=== PATIENT | female | born 1940 | race Caucasian/White ===

== ENCOUNTER 2019-03-11 21:53 | Inpatient (IN) | payer MEDICARE, BC ==
[2019-03-11 22:41] LABS: ABSOLUTE BASOPHILS # (AUTO) 0.1 10^3/uL (0.0-0.2); ABSOLUTE EOSINOPHILS # (AUTO) 0.1 10^3/uL (0.0-0.6); ABSOLUTE LYMPHOCYTES (AUTO) 1.6 10^3/uL (0.5-4.7); ABSOLUTE MONOCYTES (AUTO) 0.8 10^3/uL (0.1-1.4); ABSOLUTE NEUT (AUTO) 6.5 10^3/uL (1.7-8.2); BASOPHILS % (AUTO) 0.6 % (0-2); EOSINOPHILS % (AUTO) 1.2 % (0-6); HEMOGLOBIN 14.6 g/dL (12.0-15.5); LYMPHOCYTES % (AUTO) 17.9 % (13-45); MEAN CORPUSCULAR HEMOGLOBIN 33.8 pg (27.0-33.4); MEAN CORPUSCULAR HGB CONC 33.3 g/dL (32.0-36.0); MEAN CORPUSCULAR VOLUME 102 fl (80-97); MONOCYTES % (AUTO) 8.4 % (3-13); PLATELET COUNT 230 10^3/uL (150-450); RED BLOOD COUNT 4.32 10^6/uL (3.72-5.28); RED CELL DISTRIBUTION WIDTH 15.3 % (11.5-14.0); SEGMENTED NEUTROPHILS % (AUTO) 71.9 % (42-78); TOTAL CELLS COUNTED % (AUTO) 100 %; WHITE BLOOD COUNT 9.1 10^3/uL (4.0-10.5)
[2019-03-11 22:49] LABS: ALBUMIN 3.9 g/dL (3.5-5.0); ALKALINE PHOSPHATASE 78 U/L (38-126); ANION GAP 5 (5-19); ASPARTATE AMINO TRANSFERASE 29 U/L (14-36); BILIRUBIN,TOTAL 0.2 mg/dL (0.2-1.3); BLOOD UREA NITROGEN 17 mg/dL (7-20); CALCIUM 9.7 mg/dL (8.4-10.2); CARBON DIOXIDE 33 mmol/L (22-30); CHLORIDE 103 mmol/L (98-107); GLUCOSE 123 mg/dL (75-110); POTASSIUM 4.8 mmol/L (3.6-5.0); TOTAL PROTEIN 6.2 g/dL (6.3-8.2)
[2019-03-11 22:51] LABS: ALCOHOL < 10 mg/dL (NONE DETECTED)
[2019-03-11 23:00] LABS: APPEARANCE,URINE CLOUDY; BILIRUBIN,URINE NEGATIVE (NEGATIVE); COLOR,URINE YELLOW; GLUCOSE, URINE NEGATIVE (NEGATIVE); KETONES,URINE NEGATIVE (NEGATIVE); LEUKOCYTE ESTERASE,URINE LARGE (NEGATIVE); NITRITE,URINE POSITIVE (NEGATIVE); PROTEIN,URINE 100 mg/dL (NEGATIVE); URINE SPECIFIC GRAVITY 1.015; UROBILINOGEN,URINE NEGATIVE mg/dL (<2.0)
[2019-03-11 23:08] LABS: URINE AMPHETAMINES SCREEN NEGATIVE; URINE BENZODIAZEPINES SCREEN NEGATIVE; URINE COCAINE SCREEN NEGATIVE; URINE MARIJUANA (THC) SCREEN NEGATIVE; URINE METHADONE SCREEN NEGATIVE; URINE PHENCYCLIDINE SCREEN NEGATIVE
[2019-03-11 23:09] LABS: URINE BARBITURATES SCREEN UNCONFIRMED POSITIVE
[2019-03-11 23:42] LABS: ACETAMINOPHEN < 10 ug/mL (10-30); SALICYLATE < 1.0 mg/dL (2.0-20.0)
--- NOTE | 2019-03-12 00:07 | RADIOLOGY REPORT (SQ) ---
CT of the head: 03/11/2019 11:04 PM RECORDING STUDIO INTERN HISTORY: 78-year-old patient with altered mental status. COMPARISON: None available TECHNIQUE: Multiple axial contiguous images were obtained through the head without intravenous contrast administered. This exam was performed according to our departmental dose-optimization program, which includes automated exposure control, adjustment of the mA and/or KV according to the patient's size and/or use of iterative reconstruction technique. FINDINGS: The ventricles and cerebral sulci demonstrate mild prominence, consistent with cerebral atrophy. There are mild periventricular hypodensities, suggestive of periventricular white matter changes. The wang-white matter differentiation is within normal limits. Both orbits appear unremarkable. The mastoid air cells appear clear. The visualized paranasal sinuses appear clear. The calvarium is intact. No extra-axial fluid collection is seen. No midline shift or mass effect is apparent. There are no findings to suggest acute intracranial hemorrhage. IMPRESSION: 1. No acute intracranial hemorrhage is seen. 2. Mild cerebral atrophy and periventricular white matter changes are seen.
--- NOTE | 2019-03-12 00:08 | RADIOLOGY REPORT (SQ) ---
AP Portable chest: 03/11/2019 11:06 PM TRAVELING CLERK History: 78-year old patient with altered mental status. Comparison: None available Findings: The cardiomediastinal silhouette is normal in size. No pneumothorax is seen. No acute airspace opacities are seen. No discrete pleural effusion is apparent. There is questionable increased density at the aortopulmonic window. Impression: No acute airspace opacities are seen. There is some questionable increased density at the aortopulmonic window region.
[2019-03-12] MEDS ORDERED: CEFTRIAXONE 1 GM/D5W RTU 1 GM/50 ML RTUPB IV ONE (00:30)
--- NOTE | 2019-03-12 02:27 | ER Document Report ---
ED General - General Chief Complaint: Altered Mental Status Stated Complaint: POSSIBLE OVERDOSE Time Seen by Provider: 03/11/19 22:52 TRAVEL OUTSIDE OF THE [place] IN LAST 30 DAYS: No - HPI Notes: Patient is a 78-year-old female brought into the emergency department for evaluation. History is obtained from EMS and neighbor. Patient had a longtime history of alcohol dependence. She was arrested for DWI over a year ago, at that point she quit drinking. According to the neighbor she "had the shakes" af terwards, and received some medicines to help her with alcohol withdrawals. She states the patient would not admit that these were secondary to the alcohol, thought she was developing a tremor. At any rate, the patient still intermittently drinks, and recently was drinking heavily while her granddaughter and great grandson were staying with her. The patient and her granddaughter got into a fight, the granddaughter moved out, and at that point the patient stopped drinking. Evidently she developed shaking tremors shortly afterwards. She had a prescription for primidone and Ativan. Patient's neighbor states she was unable to contact her. She went down to the house and found her unresponsive on the floor, with an empty bottle of primidone and Ativan next to her. According to the neighbor, she had not expressed any suicidal ideations to her in the past, but certainly had reasons to be heavily depressed. She lost her , her beloved family pet as well. She is alienated from her son and daughter, who does not speak with her. She is currently fighting with her granddaughter. It is unclear at this time what the patient's intention was by taking these medications to excess. - Related Data Allergies/Adverse Reactions: No Known Allergies Allergy (Verified 03/11/19 22:33) Home Medications: Primidone. Lorazepam. simvastatin. metoprolol. Clopidogrel Past Medical History - General Information source: Friend - Social History Smoking Status: Current Every Day Smoker Chew tobacco use (# tins/day): No Frequency of alcohol use: Heavy Drug Abuse: None Family History: Other - Not obtained secondary to current mental status Patient has suicidal ideation: No Patient has homicidal ideation: No - Past Medical History Cardiac Medical History: Reports: Hx Hypercholesterolemia, Hx Hypertension Review of Systems - Review of Systems -: Yes ROS unobtainable due to patient's medical condition Physical Exam - Vital signs Vitals: Resp Pulse Ox 18 92 03/11/19 21:54 03/11/19 21:54 - Notes Notes: This is a 78-year-old female who appears her stated age, no acute distress. She is somnolent but awoke to verbal stimuli. Vital signs reviewed, please refer to chart. Head is normocephalic, atraumatic. Pupils equal round, reactive to light. Neck is supple without meningismus. Heart is regular rate and rhythm. Lungs are clear to auscultation bilaterally. Abdomen is soft, nontender, normoactive bowel sounds throughout. Extremities without cyanosis, clubbing. Posterior calves are nontender. Peripheral pulses are equal. Skin is warm and dry. Patient is drowsy, GCS 13. No gross facial asymmetry. Patient moves all 4 extremities spontaneously. Sensation appears to be intact. Course - Re-evaluation Re-evalutation: 03/12/19 02:29 Patient presents to the emergency department for evaluation. She was clearly under the influence of an overdose of primidone and Ativan. She was somnolent, but woke to verbal stimuli. She became more alert throughout the course of her stay, although she does remain somewhat confused. My suspicion is that this is still secondary to the medication. She did have a medical work-up here. Her laboratory investigations revealed a UTI. She is not hypotensive nor tachycardic. She does not have a leukocytosis. I did get an order 1 g of IV Rocephin, will start the patient on Keflex while here. At this point, I do believe patient is medically cleared. It is unclear at this time whether or not she was actively suicidal, or if this is a substance abuse issue. At any rate, I do believe psychosocial evaluation is appropriate. Given her lack of capacity at this time, as well as my concerns, IVC was placed. Patient is medically cleared, awaiting evaluation in the morning. - Vital Signs Vital signs: Temp Pulse Resp BP Pulse Ox 97.6 F 15 138/52 H 94 03/11/19 22:31 03/12/19 00:31 03/12/19 00:31 03/12/19 00:31 - Laboratory Result Diagrams: 03/11/19 21:50 03/11/19 21:50 Laboratory results interpreted by me: 03/11/19 03/11/19 03/11/19 21:50 21:50 21:50 MCV 102 H MCH 33.8 H RDW 15.3 H Carbon Dioxide 33 H Glucose 123 H Magnesium 2.6 H Total Protein 6.2 L Urine Protein Urine Blood Urine Nitrite Ur Leukocyte Esterase Salicylates < 1.0 L Acetaminophen < 10 L 03/11/19 22:14 MCV MCH RDW Carbon Dioxide Glucose Magnesium Total Protein Urine Protein 100 H Urine Blood SMALL H Urine Nitrite POSITIVE H Ur Leukocyte Esterase LARGE H Salicylates Acetaminophen - Diagnostic Test Radiology reviewed: Reports reviewed Radiology results interpreted by me: 03/12/19 02:[address] 03/11/19 22:53 IMPRESSION: 1. No acute intracranial hemorrhage is seen. 2. Mild cerebral atrophy and periventricular white matter changes are seen. - EKG Interpretation by Me Additional EKG results interpreted by me: 03/12/19 02:28 Initial EKG reveals a sinus mechanism with a rate of 87 bpm. Normal axis. Borderline prolonged QT interval at 491. No acute ST changes concerning for ischemia or infarction. Repeat EKG shows a sinus mechanism at 88 bpm, and QT interval is still borderline prolonged, but down to 480. Discharge - Discharge Clinical Impression: Overdose, Urinary tract infection Condition: Stable Disposition: OTHER Instructions: Cephalexin ([facility]), Urinary Tract Infection ([facility]) Prescriptions: Cephalexin Monohydrate [Keflex 500 mg Capsule] 500 mg PO QID #20 capsule
--- NOTE | 2019-03-12 06:34 | EKG REPORT ---
SEVERITY:- BORDERLINE ECG - SINUS RHYTHM BORDERLINE PROLONGED QT INTERVAL : Confirmed by: Luis E Lo MD 12-Mar-2019 06:33:54
--- NOTE | 2019-03-12 09:16 | EKG REPORT ---
SEVERITY:- NORMAL ECG - SINUS RHYTHM : Confirmed by: Parul Severino 12-Mar-2019 09:16:02
[2019-03-12] MEDS ORDERED: CEPHALEXIN 500 MG CAPSULE PO SCH (10:00)
--- NOTE | 2019-03-12 10:02 | ER Document Report ---
Doctor's Note Notes: 03/12/19 10:02 On review of the chart the Keflex had not been ordered as an tract so I did order the Keflex to treat the UTI. There was also no consultation for psychiatric services regarding the overdose so I have placed the consult and will speak with the psychiatric providers 03/12/19 10:22 I spoke with the psychiatric team about the patient and they are aware of the consult. I went to evaluate the patient. She does arouse to voice but is confused. She is able to give me the year but not the month. She is able to give me her birthday but not the president. She does not have recollection of whether she took too many of her medications at home. She does admit to hypertension but is otherwise a poor historian for providing other details of her medical history. On review of the records she is supposed to be on Plavix do not know if she is actually taking this medication, is supposed to be on metoprolol do not know if she has been taking this medication. Patient falls asleep in the middle of our conversations and is still very sleepy and drowsy. She does arouse to voice. 03/12/19 10:45 I spoke with poison control, both Ativan and primidone will have a long half- life duration. He will call me back after he discusses the primidone issue with toxicology as we are not sure that the patient overdosed. I spoke with Alex vasquez the hospitalist service physician registered nurse first assistant. He request that I speak with the etl architect initially to see if the patient may need the ICU, if he declines call him back and they will accept the patient for admission 03/12/19 10:[address] Zepeda, Fire Management Technician. case discussed will admit to ICU. discussed with poison control. Long half life may be several days to be out of system. Supportive care.
[2019-03-12] MEDS: CLOPIDOGREL BISULFATE 75 MG TABLET PO SCH (10:05)
[2019-03-12] MEDS: METOPROLOL SUCCINATE 50 MG TAB.SR.24H PO SCH (10:05)
[2019-03-12 11:25] LABS: ABSOLUTE BASOPHILS # (AUTO) 0.1 10^3/uL (0.0-0.2); ABSOLUTE EOSINOPHILS # (AUTO) 0.1 10^3/uL (0.0-0.6); ABSOLUTE LYMPHOCYTES (AUTO) 1.4 10^3/uL (0.5-4.7); ABSOLUTE MONOCYTES (AUTO) 0.8 10^3/uL (0.1-1.4); ABSOLUTE NEUT (AUTO) 3.7 10^3/uL (1.7-8.2); BASOPHILS % (AUTO) 0.9 % (0-2); EOSINOPHILS % (AUTO) 1.7 % (0-6); HEMATOCRIT 38.1 % (36.0-47.0); LYMPHOCYTES % (AUTO) 23.2 % (13-45); MEAN CORPUSCULAR HEMOGLOBIN 34.2 pg (27.0-33.4); MEAN CORPUSCULAR HGB CONC 34.2 g/dL (32.0-36.0); MEAN CORPUSCULAR VOLUME 100 fl (80-97); MONOCYTES % (AUTO) 13.3 % (3-13); PLATELET COUNT 195 10^3/uL (150-450); RED BLOOD COUNT 3.82 10^6/uL (3.72-5.28); SEGMENTED NEUTROPHILS % (AUTO) 60.9 % (42-78); TOTAL CELLS COUNTED % (AUTO) 100 %
[2019-03-12 11:47] LABS: BLOOD UREA NITROGEN 14 mg/dL (7-20); CALCIUM 9.5 mg/dL (8.4-10.2); CARBON DIOXIDE 35 mmol/L (22-30); GLUCOSE 95 mg/dL (75-110); POTASSIUM 3.9 mmol/L (3.6-5.0)
[2019-03-12 11:53] LABS: CHLORIDE 103 mmol/L (98-107)
[2019-03-12 11:54] LABS: ANION GAP 4 (5-19)
[2019-03-12] MEDS ORDERED: ACETAMINOPHEN 325 MG TABLET PO PRN (13:45)
[2019-03-12] MEDS ORDERED: DEXTROSE 40% GEL 15 GM TUBE PO PRN ×2 (13:45)
[2019-03-12] MEDS ORDERED: ONDANSETRON HCL INJ/PF 4 MG/2 ML SDV IV PRN (13:45)
[2019-03-12] MEDS ORDERED: GLUCAGON,HUMAN RECOMB 1 MG INJ SUBCUT PRN (13:45)
[2019-03-12] MEDS ORDERED: DEXTROSE 50%-WATER 25 GM/50 ML DISP.SYRIN IV PRN ×2 (13:45)
[2019-03-12] MEDS: THIAMINE HCL 100 MG, FOLIC ACID 1 MG in NORMAL SALINE 250 ML IV SCH (13:49)
[2019-03-12] MEDS ORDERED: INFLUENZA QUAD (6MOS+) 2019-20 VAC 0.5 ML SYR IM ONE (14:00)
[2019-03-12] MEDS ORDERED: LABETALOL HCL INJ 20 MG/4 ML DISP.SYRIN IV PRN (14:19)
[2019-03-12] MEDS ORDERED: LORAZEPAM INJ 2 MG/1 ML VIAL IV PRN (14:21)
--- NOTE | 2019-03-12 14:34 | CRITICAL CARE ADMISSION REPORT ---
HPI Date:: 03/12/19 - Critical Care Attending Time:: 14:24 Reason for ICU Reason:: drug overdose, alcohol abuse HPI: Pt is a 78 yo woman with a h/o alcohol abuse, CAD, HTN, hyperlipidemia, who was brought to the ED after being found unresponsive by a neighbor. Per report, there were empty bottles of ativan and primidone next to the pt. Pt has been lethargic but had periods of agiation in the ED and has required 4 point soft restraints. She was diagnosed with a UTI in the ED and has been started on ATBX. Upon my assessement of the pt in the ICU, she is lethargic, in restraints, but moves all extremities. - Diagnosis/Plan (1) Overdose Qualifiers: Encounter type: initial encounter Injury intent: undetermined intent Qualified Code(s): T50.904A - Poisoning by unspecified drugs, medicaments and biological substances, undetermined, initial encounter Is this a current diagnosis for this admission?: Yes (2) Urinary tract infection Qualifiers: Urinary tract infection type: acute cystitis Is this a current diagnosis for this admission?: Yes (3) Alcohol abuse Is this a current diagnosis for this admission?: Yes (4) Encephalopathy acute Is this a current diagnosis for this admission?: Yes Past Medical History Cardiac Medical History: Reports: Coronary Artery Disease, Hyperlipidema, Hypertension Social/Family History - Social History Smoking Status: Unknown if Ever Smoked Frequency of Alcohol Use: Heavy Hx Recreational Drug Use: - unknown Drugs: None Hx Prescription Drug Abuse: No - Medication/Allergies Home Medications: Cephalexin Monohydrate [Keflex 500 mg Capsule] 500 mg PO QID #20 capsule 03/12/19 Clopidogrel Bisulfate [Plavix 75 mg Tablet] 75 mg PO DAILY 03/12/19 Fluoxetine HCl [Prozac 20 mg Capsule] 20 mg PO DAILY 03/12/19 Lorazepam [Ativan 0.5 mg Tablet] 0.5 mg PO Q6HP PRN 03/12/19 Metoprolol Succinate [Toprol Xl 50 mg Tab.sr] 50 mg PO DAILY 03/12/19 Primidone [Mysoline 50 mg Tablet] 150 mg PO QHS 03/12/19 Simvastatin [Zocor 40 mg Tablet] 40 mg PO QHS 03/12/19 Venlafaxine HCl ER [Effexor Xr 75 mg Cap.sr] 75 mg PO DAILY 03/12/19 Allergies/Adverse Reactions: No Known Allergies Allergy (Verified 03/11/19 22:33) Review of Systems ROS unobtainable: Due to mental status Physical Exam Vital Signs: Temp Pulse Resp BP Pulse Ox 97.7 F 84 18 173/65 H 97 03/12/19 14:00 03/12/19 14:00 03/12/19 14:00 03/12/19 14:00 03/12/19 14:00 Intake & Output 03/11/19 03/12/19 03/13/19 06:59 06:59 06:59 Intake Total 50 Balance 50 Weight 64.8 kg 67.2 kg Weight/Height Weight 67.2 kg Height 5 ft 5 in General appearance: PRESENT: no acute distress, well-developed, well-nourished Head exam: PRESENT: atraumatic, normocephalic Respiratory exam: PRESENT: unlabored Cardiovascular exam: PRESENT: RRR GI/Abdominal exam: PRESENT: soft, other - non tender, non distended Extremities exam: PRESENT: other - no edemam Musculoskeletal exam: PRESENT: normal inspection Neurological exam: PRESENT: altered, other - moves all extremities Laboratory/Radiographs Laboratory Results: 03/12/19 11:10 03/12/19 11:10 03/11/19 03/11/19 03/11/19 21:50 21:50 21:50 WBC 9.1 RBC 4.32 Hgb 14.6 Hct 44.0 MCV 102 H MCH 33.8 H MCHC 33.3 RDW 15.3 H Plt Count 230 Seg Neutrophils % 71.9 Sodium 141.2 Cancelled Potassium 4.8 Cancelled Chloride 103 Cancelled Carbon Dioxide 33 H Cancelled Anion Gap 5 Cancelled BUN 17 Cancelled Creatinine 0.55 Cancelled Est GFR ( Amer) > 60 Cancelled Est GFR (Non-Af Amer) Cancelled Glucose 123 H Cancelled Calcium 9.7 Cancelled Magnesium 2.6 H Cancelled Total Bilirubin 0.2 Cancelled AST 29 Cancelled Alkaline Phosphatase 78 Cancelled Total Protein 6.2 L Cancelled Albumin 3.9 Cancelled Urine Color Urine Appearance Urine pH Ur Specific Cochran Urine Protein Urine Glucose (UA) Urine Ketones Urine Blood Urine Nitrite Ur Leukocyte Esterase Urine WBC (Auto) Urine RBC (Auto) 03/11/19 03/12/19 03/12/19 22:14 11:10 11:10 WBC 6.0 RBC 3.82 Hgb 13.0 Hct 38.1 MCV 100 H MCH 34.2 H MCHC 34.2 RDW 15.0 H Plt Count 195 Seg Neutrophils % 60.9 Sodium 141.6 Potassium 3.9 Chloride 103 Carbon Dioxide 35 H Anion Gap 4 L BUN 14 Creatinine 0.68 Est GFR ( Amer) > 60 Est GFR (Non-Af Amer) Glucose 95 Calcium 9.5 Magnesium 2.5 H Total Bilirubin AST Alkaline Phosphatase Total Protein Albumin Urine Color YELLOW Urine Appearance CLOUDY Urine pH 6.0 Ur Specific Cochran 1.015 Urine Protein 100 H Urine Glucose (UA) NEGATIVE Urine Ketones NEGATIVE Urine Blood SMALL H Urine Nitrite POSITIVE H Ur Leukocyte Esterase LARGE H Urine WBC (Auto) 145 Urine RBC (Auto) 9 03/11/19 21:50 Troponin I < 0.012 Impressions: Head CT 03/11/19 22:53 IMPRESSION: 1. No acute intracranial hemorrhage is seen. 2. Mild cerebral atrophy and periventricular white matter changes are seen. All labs, radiographs, diagnostic studies and EKGs were personally reviewed: Yes Critical Time Critical Time (minutes): 0 - level three initial inpatient exam -: The care of a critically ill patient is dynamic. This note represents a static moment in the admission process. Orders and treatments may be given simultaneously and urgently, and time is not veterans contact representative of the treatment process. This patient requires Critical Care secondary to life threatening organ or limb dysfunction. Without Critical Care services, the patient is at risk for increased mortality and morbidity. Provider Note Provider Note: Assessment: 78 yo woman with alcohol abuse, encephalopathy, drug overdose, UTI. Plan: 1. Respiratory: stable on room air 2. CV: HTN. Resume home Toprol XL. Prn labetalol 3. Psych: drug overdose with ativan and primodone. Unclear if this was intentional. Alcohol abuse/intoxication. encephalopathy. Monitor for signs and symptoms of withdrawal, CIWA. IV folic acid and thiamine. Psychiatry has been consulted. Pt has been involuntarily committed. 4. UTI. culture is positive for GNR. Will start cipro 5. Nutrition: NPO 6. Prophylaxis: lovenox
[2019-03-12] MEDS: CIPROFLOXACIN 400 MG/D5W RTU 400 MG/200 ML RTUPB IV SCH ×2 (15:20→22:25)
[2019-03-12] MEDS: FAMOTIDINE INJ/PF 20 MG/2 ML SDV IV SCH (22:25)
[2019-03-12] MEDS: SIMVASTATIN 40 MG TABLET PO SCH (22:26)
[2019-03-13 05:07] LABS: HEMATOCRIT 39.7 % (36.0-47.0); HEMOGLOBIN 13.4 g/dL (12.0-15.5); MEAN CORPUSCULAR HGB CONC 33.8 g/dL (32.0-36.0); MEAN CORPUSCULAR VOLUME 101 fl (80-97); PLATELET COUNT 210 10^3/uL (150-450); RED BLOOD COUNT 3.94 10^6/uL (3.72-5.28); RED CELL DISTRIBUTION WIDTH 14.8 % (11.5-14.0); WHITE BLOOD COUNT 7.1 10^3/uL (4.0-10.5)
[2019-03-13 05:33] LABS: ANION GAP 6 (5-19); CARBON DIOXIDE 31 mmol/L (22-30); CHLORIDE 104 mmol/L (98-107)
[2019-03-13 05:34] LABS: BLOOD UREA NITROGEN 11 mg/dL (7-20); CALCIUM 9.5 mg/dL (8.4-10.2); GLUCOSE 103 mg/dL (75-110); POTASSIUM 3.9 mmol/L (3.6-5.0)
--- NOTE | 2019-03-13 10:29 | PDOC CRITICAL CARE PROG REPORT ---
General Date:: 03/13/19 - Critical Care Attending Note Events in the past 12 to 24 Hours:: No acute overnight events. Pt is less confused. Staff reports that pt confessed to intentionally overdosing on the pills. Reason for ICU Addmission:: drug overdose, alcohol abuse - Medications: Medications reviewed and adjusted accordingly: Yes Physical Exam Vital Signs: Temp Pulse Resp BP Pulse Ox 99.0 F 74 19 112/45 L 71 L 03/13/19 08:00 03/13/19 08:00 03/13/19 09:44 03/13/19 09:44 03/13/19 10:00 Intake & Output 03/12/19 03/13/19 03/14/19 06:59 06:59 06:59 Intake Total 50 200 Output Total 935 110 Balance 50 -735 -110 Weight 64.8 kg 66.2 kg Weight/Height Weight 66.2 kg Height 5 ft 5 in General appearance: PRESENT: no acute distress, well-developed, well-nourished Head exam: PRESENT: atraumatic, normocephalic Cardiovascular exam: PRESENT: RRR GI/Abdominal exam: PRESENT: soft, other - NTND Gentrourinary exam: PRESENT: indwelling catheter Neurological exam: PRESENT: alert, awake, other - confused Laboratory/Radiographs Laboratory Results: 03/13/19 04:29 03/13/19 04:29 03/12/19 03/12/19 03/13/19 11:10 11:10 04:21 WBC 6.0 RBC 3.82 Hgb 13.0 Hct 38.1 MCV 100 H MCH 34.2 H MCHC 34.2 RDW 15.0 H Plt Count 195 Seg Neutrophils % 60.9 Sodium 141.6 Potassium 3.9 Chloride 103 Carbon Dioxide 35 H Anion Gap 4 L BUN 14 Creatinine 0.68 Est GFR ( Amer) > 60 Glucose 95 Calcium 9.5 Magnesium 2.5 H Ammonia 20.7 03/13/19 03/13/19 04:29 04:29 WBC 7.1 RBC 3.94 Hgb 13.4 Hct 39.7 MCV 101 H MCH 34.0 H MCHC 33.8 RDW 14.8 H Plt Count 210 Seg Neutrophils % Sodium 141.0 Potassium 3.9 Chloride 104 Carbon Dioxide 31 H Anion Gap 6 BUN 11 Creatinine 0.57 Est GFR ( Amer) > 60 Glucose 103 Calcium 9.5 Magnesium Ammonia 03/11/19 21:50 Troponin I < 0.012 Impressions: Head CT 03/11/19 22:53 IMPRESSION: 1. No acute intracranial hemorrhage is seen. 2. Mild cerebral atrophy and periventricular white matter changes are seen. Assessment and Plan - Diagnosis (1) Overdose Qualifiers: Encounter type: initial encounter Injury intent: intentional self-harm Qualified Code(s): T50.902A - Poisoning by unspecified drugs, medicaments and biological substances, intentional self-harm, initial encounter Is this a current diagnosis for this admission?: Yes (2) Urinary tract infection Qualifiers: Urinary tract infection type: acute cystitis Is this a current diagnosis for this admission?: Yes (3) Alcohol abuse Is this a current diagnosis for this admission?: Yes (4) Encephalopathy acute Is this a current diagnosis for this admission?: Yes Plan Summary: Assessment: 78 yo woman with alcohol abuse, encephalopathy, intentional drug overdose, UTI. Plan: 1. Respiratory: stable on room air 2. CV: HTN. Continue Toprol XL. Prn labetalol 3. Psych: intentional drug overdose with ativan and primodone. Alcohol abuse/ intoxication. encephalopathy. Monitor for signs and symptoms of withdrawal, CIWA. IV folic acid and thiamine. Psychiatry has been consulted. Suicide precautions. 4. UTI. culture is positive for GNR. Day 2 cipro 5. Nutrition: regular diet 6. Prophylaxis: lovenox 7. Stable for transfer to telemetry bed Critical Time Critical Time (minutes): 0 Level of Care: TELE -: 1. The care of a critical patient is a dynamic process. This note is a electronics parts sales representative synopsis but static in nature. The timeframe for treatments given in order is not necessarily the actual time these treatments may have been done. 2. This patient requires critical care secondary to ongoing requirements for therapy not offered or safe outside the critical care environment. Transfer to a lower level of care will result in altered life or limb morbidity and mortality. 3. Multidisciplinary rounds completed. 4. ABCDE bundle addressed.
[2019-03-13] MEDS: METOPROLOL SUCCINATE 50 MG TAB.SR.24H PO SCH (11:00)
[2019-03-13] MEDS: FAMOTIDINE INJ/PF 20 MG/2 ML SDV IV SCH ×2 (11:00→21:12)
[2019-03-13] MEDS: ENOXAPARIN SODIUM INJ 40 MG/0.4 ML DISP.SYRIN SUBCUT SCH (11:00)
[2019-03-13] MEDS: THIAMINE HCL 100 MG, FOLIC ACID 1 MG in NORMAL SALINE 250 ML IV SCH (11:00)
[2019-03-13] MEDS: CLOPIDOGREL BISULFATE 75 MG TABLET PO SCH (11:00)
[2019-03-13] MEDS ORDERED: CIPROFLOXACIN HCL 500 MG TABLET PO ONE (13:00)
[2019-03-13] MEDS: CIPROFLOXACIN HCL 500 MG TABLET PO SCH ×2 (13:34→21:13)
--- NOTE | 2019-03-13 19:22 | PSYCHOLOGICAL NOTE ---
Psych Note - Psych Note Date seen by psych provider: 03/13/19 Time seen by psych provider: 13:50 Psych Note: Patient is a 78-year-old female who initially presented to ED for possible overdose. Patient was subsequently admitted to ICU for OD on Primidone and Lorazepam. Clinician notes patient appears in a confused/altered state. Patient is not oriented to place, time, circumstance. Patient is restrained with soft restraints. When asked if event was a suicide attempt, patient responded, "I don't know, possibly." Patient later stated she "didn't think" it was a suicide attempt. Patient states "it was a moment." When asked if she was glad she is still alive, patient responded, she was not glad as "it's up to me if I live or ." Head CT contains language of neurodegenerative processes. Patient has a history of ETOH abuse. Patient is alert and oriented to person, place, time and circumstance. Mood is normal with congruent affect. Patient denies suicidal and homicidal ideations. Delusions are absent and behavior is congruent with an intact reality based presentation (i.e., organized and linear through processes). There is no observed behavior that suggests patient is responding to internal stimuli. Patient is able to engage in organized, rational thought processes. Patient is able to express needs and wants in a logical manner. Patient denies current auditory and visual hallucinations. Eye contact is appropriate. Conversational speech is within normal rate, tone, and prosody. Intellectual ability appears to be within average range. Attention and concentration are good. Insight, judgment and impulse control are currently poor. Impression/Plan: Patient is recommended for IVC. Patient is in an altered mental state making an accurate mental health assessment difficult. Patient offers conflict reports as to if event was a suicide attempt. The head CT conducted on 03/11/2019 contains language suggestive of neurodegenerative processes. Patient will be reassessed. Dr. Guzman was consulted on the care and management of this patient; attending physician is in agreement with recommendations and disposition.
[2019-03-13] MEDS: SIMVASTATIN 40 MG TABLET PO SCH (21:13)
[2019-03-13] MEDS: CIPROFLOXACIN 400 MG/D5W RTU 400 MG/200 ML RTUPB IV SCH (21:50)
[2019-03-14 04:21] LABS: HEMATOCRIT 38.5 % (36.0-47.0); HEMOGLOBIN 13.2 g/dL (12.0-15.5); MEAN CORPUSCULAR HEMOGLOBIN 34.3 pg (27.0-33.4); MEAN CORPUSCULAR HGB CONC 34.5 g/dL (32.0-36.0); MEAN CORPUSCULAR VOLUME 100 fl (80-97); PLATELET COUNT 200 10^3/uL (150-450); RED BLOOD COUNT 3.86 10^6/uL (3.72-5.28); RED CELL DISTRIBUTION WIDTH 14.6 % (11.5-14.0); WHITE BLOOD COUNT 6.1 10^3/uL (4.0-10.5)
[2019-03-14 04:41] LABS: ANION GAP 7 (5-19); BLOOD UREA NITROGEN 14 mg/dL (7-20); CALCIUM 9.4 mg/dL (8.4-10.2); CARBON DIOXIDE 29 mmol/L (22-30); CHLORIDE 105 mmol/L (98-107); GLUCOSE 90 mg/dL (75-110); POTASSIUM 3.7 mmol/L (3.6-5.0)
[2019-03-14] MEDS: CIPROFLOXACIN 400 MG/D5W RTU 400 MG/200 ML RTUPB IV SCH ×2 (09:01→21:13)
[2019-03-14] MEDS: CLOPIDOGREL BISULFATE 75 MG TABLET PO SCH (09:02)
[2019-03-14] MEDS: METOPROLOL SUCCINATE 50 MG TAB.SR.24H PO SCH (09:02)
[2019-03-14] MEDS: ENOXAPARIN SODIUM INJ 40 MG/0.4 ML DISP.SYRIN SUBCUT SCH (09:02)
--- NOTE | 2019-03-14 09:20 | PDOC CRITICAL CARE PROG REPORT ---
General Date:: 03/14/19 - Critical Care Attending Note Events in the past 12 to 24 Hours:: No acute overnight events. Still awaiting transfer to regular bed. Psych has seen pt. Reason for ICU Addmission:: drug overdose, alcohol abuse Physical Exam Vital Signs: Temp Pulse Resp BP Pulse Ox 97.8 F 64 21 H 156/62 H 97 03/14/19 07:51 03/14/19 07:51 03/14/19 07:51 03/14/19 07:51 03/14/19 07:51 Intake & Output 03/13/19 03/14/19 03/15/19 06:59 06:59 06:59 Intake Total 200 200 Output Total 935 140 Balance -735 60 Weight 66.2 kg 65.6 kg Weight/Height Weight 65.6 kg Height 5 ft 5 in General appearance: PRESENT: no acute distress, well-developed, well-nourished Head exam: PRESENT: atraumatic, normocephalic Cardiovascular exam: PRESENT: RRR GI/Abdominal exam: PRESENT: soft Neurological exam: PRESENT: alert, awake, other - confused Laboratory/Radiographs Laboratory Results: 03/14/19 03:51 03/14/19 03:51 03/14/19 03/14/19 03:51 03:51 WBC 6.1 RBC 3.86 Hgb 13.2 Hct 38.5 MCV 100 H MCH 34.3 H MCHC 34.5 RDW 14.6 H Plt Count 200 Sodium 140.8 Potassium 3.7 Chloride 105 Carbon Dioxide 29 Anion Gap 7 BUN 14 Creatinine 0.56 Est GFR ( Amer) > 60 Glucose 90 Calcium 9.4 03/11/19 22:14 Catheterized Urine Urine Culture - Final Klebsiella Pneumoniae 03/11/19 21:50 Troponin I < 0.012 Impressions: Head CT 03/11/19 22:53 IMPRESSION: 1. No acute intracranial hemorrhage is seen. 2. Mild cerebral atrophy and periventricular white matter changes are seen. Assessment and Plan - Diagnosis (1) Overdose Qualifiers: Encounter type: initial encounter Injury intent: intentional self-harm Qualified Code(s): T50.902A - Poisoning by unspecified drugs, medicaments and biological substances, intentional self-harm, initial encounter Is this a current diagnosis for this admission?: Yes (2) Urinary tract infection Qualifiers: Urinary tract infection type: acute cystitis Is this a current diagnosis for this admission?: Yes (3) Alcohol abuse Is this a current diagnosis for this admission?: Yes (4) Encephalopathy acute Is this a current diagnosis for this admission?: Yes Plan Summary: Assessment: 78 yo woman with alcohol abuse, encephalopathy, intentional drug overdose, UTI. Plan: 1. Respiratory: stable on room air 2. CV: HTN. Continue Toprol XL. Prn labetalol 3. Psych: intentional drug overdose with ativan and primodone. Alcohol abuse/intoxication. encephalopathy. Monitor for signs and symptoms of withdrawal, CIWA. IV folic acid and thiamine. Psychiatry has been consulted. Suicide precautions. 4. UTI. culture is positive for GNR. Day 3 cipro 5. Nutrition: regular diet 6. Prophylaxis: lovenox 7. Awaiting transfer to telemetry bed Critical Time Critical Time (minutes): 0 Level of Care: TELE -: 1. The care of a critical patient is a dynamic process. This note is a business services sales representative synopsis but static in nature. The timeframe for treatments given in order is not necessarily the actual time these treatments may have been done. 2. This patient requires critical care secondary to ongoing requirements for therapy not offered or safe outside the critical care environment. Transfer to a lower level of care will result in altered life or limb morbidity and m ortality. 3. Multidisciplinary rounds completed. 4. ABCDE bundle addressed.
[2019-03-14] MEDS: FOLIC ACID 1 MG TABLET PO SCH (09:57)
[2019-03-14] MEDS: MULTIVITAMINS W-IRON TABLET, CHEWABLE PO SCH (09:57)
[2019-03-14] MEDS: THIAMINE HCL 100 MG TABLET PO SCH (09:57)
--- NOTE | 2019-03-14 15:48 | PSYCHOLOGICAL NOTE ---
Psych Note - Psych Note Date seen by psych provider: 03/14/19 Time seen by psych provider: 15:35 Psych Note: Reason for Consult: Intentional overdose Check in conducted with patient patient is currently sleeping. Chart review conducted; no new concerns are noted. Impression/Plan: Patient is recommended for continued IVC. Patient is not medically cleared at this time. Patient will be reassessed. Dr. Guzman was consulted on the care and management of this patient; attending physician is in agreement with recommendations and disposition.
[2019-03-14] MEDS: SIMVASTATIN 40 MG TABLET PO SCH (21:12)
--- NOTE | 2019-03-15 09:11 | PDOC CRITICAL CARE PROG REPORT ---
General Date:: 03/15/19 - Critical Care Attending Events in the past 12 to 24 Hours:: Pt remains in the ICU awaiting transfer to a medical bed. Reason for ICU Addmission:: drug overdose, alcohol abuse Physical Exam Vital Signs: Temp Pulse Resp BP Pulse Ox 98.7 F 71 17 115/84 95 03/15/19 07:25 03/15/19 07:25 03/15/19 07:25 03/15/19 07:25 03/15/19 07:25 Intake & Output 03/14/19 03/15/19 03/16/19 06:59 06:59 06:59 Intake Total 200 400 Output Total 140 Balance 60 400 Weight 65.6 kg 67.9 kg Weight/Height Weight 67.9 kg Height 5 ft 5 in General appearance: PRESENT: no acute distress, well-developed, well-nourished Head exam: PRESENT: atraumatic, normocephalic Respiratory exam: PRESENT: clear to auscultation carol, unlabored Cardiovascular exam: PRESENT: RRR GI/Abdominal exam: PRESENT: soft Musculoskeletal exam: PRESENT: normal inspection Psychiatric exam: PRESENT: depressed Laboratory/Radiographs Laboratory Results: 03/14/19 03:51 03/14/19 03:51 03/15/19 03:55 TSH 2.34 03/11/19 22:14 Catheterized Urine Urine Culture - Final Klebsiella Pneumoniae 03/11/19 21:50 Troponin I < 0.012 Impressions: Head CT 03/11/19 22:53 IMPRESSION: 1. No acute intracranial hemorrhage is seen. 2. Mild cerebral atrophy and periventricular white matter changes are seen. Assessment and Plan - Diagnosis (1) Overdose Qualifiers: Encounter type: initial encounter Injury intent: intentional self-harm Qualified Code(s): T50.902A - Poisoning by unspecified drugs, medicaments and biological substances, intentional self-harm, initial encounter Is this a current diagnosis for this admission?: Yes (2) Urinary tract infection Qualifiers: Urinary tract infection type: acute cystitis Is this a current diagnosis for this admission?: Yes (3) Alcohol abuse Is this a current diagnosis for this admission?: Yes (4) Encephalopathy acute Is this a current diagnosis for this admission?: Yes Plan Summary: Assessment: 78 yo woman with alcohol abuse, encephalopathy, intentional drug overdose, UTI. Plan: 1. Respiratory: stable on room air 2. CV: HTN. BP controlled Continue Toprol XL. Prn labetalol 3. Psych: intentional drug overdose with ativan and primodone. Alcohol abuse/intoxication. Toxic metabolic encephalopathy. No signs of ETOH withdrawal. Psychiatry has been consulted. Suicide precautions.Pt has been involuntarily committed. 4. UTI due to Klebsiella. Day 4 of 7 of cipro 5. Nutrition: regular diet 6. Prophylaxis: lovenox 7. Disposition: transfer to medical bed. Pt is medically cleared for transfer to an inpt psych facility. Critical Time Critical Time (minutes): 0 Level of Care: MEDICAL -: 1. The care of a critical patient is a dynamic process. This note is a branch sales and service representative synopsis but static in nature. The timeframe for treatments given in order is not necessarily the actual time these treatments may have been done. 2. This patient requires critical care secondary to ongoing requirements for therapy not offered or safe outside the critical care environment. Transfer to a lower level of care will result in altered life or limb morbidity and mortality. 3. Multidisciplinary rounds completed. 4. ABCDE bundle addressed.
[2019-03-15] MEDS: CLOPIDOGREL BISULFATE 75 MG TABLET PO SCH (09:59)
[2019-03-15] MEDS: FOLIC ACID 1 MG TABLET PO SCH (09:59)
[2019-03-15] MEDS: THIAMINE HCL 100 MG TABLET PO SCH (09:59)
[2019-03-15] MEDS: ENOXAPARIN SODIUM INJ 40 MG/0.4 ML DISP.SYRIN SUBCUT SCH (10:00)
[2019-03-15] MEDS: MULTIVITAMINS W-IRON TABLET, CHEWABLE PO SCH (10:00)
[2019-03-15] MEDS: METOPROLOL SUCCINATE 50 MG TAB.SR.24H PO SCH (10:00)
[2019-03-15] MEDS: CIPROFLOXACIN HCL 500 MG TABLET PO SCH ×2 (11:43→22:18)
--- NOTE | 2019-03-15 15:01 | PSYCHOLOGICAL NOTE ---
Psych Note - Psych Note Date seen by psych provider: 03/15/19 Psych Note: Chart review conducted: Attending physician noted the patient is medically cleared. Unfortunately, the patient is still receiving 2litters of O2. Psychiatric hospitals can not accept patient's that still need O2 for stability. Please document when the patient is medically cleared and does not need any medical intervention to maintain stability.
[2019-03-15] MEDS ORDERED: GUAIFENESIN SYRP 200 MG/10 ML UDC PO PRN (18:34)
--- NOTE | 2019-03-15 18:44 | PDOC PROGRESS REPORT ---
Subjective Progress Note for:: 03/15/19 Subjective:: The patient is a 78-year-old female with a past medical history significant for depression, anxiety, hypertension, possible CAD, and alcohol dependence with continuous use who was admitted to the potato grader service on 03/12/2023 acute encephalopathy secondary to presumed overdose on Ativan and primidone. Patient later admitted to intentional overdose. The patient remained stable on room air and received supportive care. She is downgraded to the medical floor and transferred to the hospitalist service on 03/15/19. Patient was briefly seen on afternoon rounds. She is found sitting up in bed, comfortably, on supplemental oxygen by nasal cannula at 3 L/min. She is alert and oriented x4, speaks in full sentences, social and conversationally appropriate. She reports that her only complaint at this time is needing a toothbrush. She denies fever, chest pain, palpitations, dyspnea, orthopnea, abdominal pain, nausea vomiting or diarrhea. She reports good appetite. She is noted to have a wet sounding cough. She has no other questions or concerns at this time. No concerns per nursing. Reason For Visit: ENCEPHSLOPATHY,DRUG OVERDOSE Physical Exam Vital Signs: Temp Pulse Resp BP Pulse Ox 97.4 F 83 18 98/70 L 95 03/15/19 15:34 03/15/19 15:34 03/15/19 15:34 03/15/19 15:34 03/15/19 15:34 Intake & Output 03/14/19 03/15/19 03/16/19 06:59 06:59 06:59 Intake Total 200 400 972 Output Total 140 Balance 60 400 972 Weight 65.6 kg 67.9 kg General appearance: PRESENT: no acute distress, cooperative, well-developed, well-nourished Head exam: PRESENT: atraumatic, normocephalic Eye exam: PRESENT: conjunctiva pink, EOMI, PERRLA. ABSENT: scleral icterus Ear exam: PRESENT: normal external ear exam Mouth exam: PRESENT: moist, tongue midline Respiratory exam: PRESENT: clear to auscultation carol, symmetrical, unlabored, other - Supplemental oxygen by nasal cannula. ABSENT: rales, rhonchi, wheezes Cardiovascular exam: PRESENT: RRR. ABSENT: diastolic murmur, rubs, systolic murmur Pulses: PRESENT: normal dorsalis pedis pul Vascular exam: PRESENT: normal capillary refill GI/Abdominal exam: PRESENT: normal bowel sounds, soft. ABSENT: distended, guarding, mass, organolmegaly, rebound, tenderness Rectal exam: PRESENT: deferred Extremities exam: PRESENT: full ROM. ABSENT: calf tenderness, clubbing, pedal edema Neurological exam: PRESENT: alert, awake, oriented to person, oriented to place, oriented to time, oriented to situation, CN II-XII grossly intact. ABSENT: motor sensory deficit Psychiatric exam: PRESENT: appropriate affect, normal mood. ABSENT: homicidal ideation, suicidal ideation Skin exam: PRESENT: dry, intact, warm. ABSENT: cyanosis, rash Results Laboratory Results: 03/14/19 03:51 03/14/19 03:51 03/15/19 03:55 TSH 2.34 03/11/19 21:50 Troponin I < 0.012 Impressions: Head CT 03/11/19 22:53 IMPRESSION: 1. No acute intracranial hemorrhage is seen. 2. Mild cerebral atrophy and periventricular white matter changes are seen. Assessment and Plan - Diagnosis (1) Overdose Qualifiers: Encounter type: initial encounter Injury intent: intentional self-harm Qualified Code(s): T50.902A - Poisoning by unspecified drugs, medicaments and biological substances, intentional self-harm, initial encounter Is this a current diagnosis for this admission?: Yes Plan: Patient with intentional overdose of Ativan and primidone. Plan medically cleared for discharge to inpatient psychiatric facility. She remains under IVC status with suicide precautions. Mental health is consulted; plan and disposition per their recommendations. (2) Alcohol abuse Is this a current diagnosis for this admission?: Yes Plan: Patient is past window for alcohol withdrawal. She continues on daily thiamine, folic acid, and multivitamin supplements. Discharge planning and mental health services consulted. (3) Urinary tract infection Qualifiers: Urinary tract infection type: acute cystitis Is this a current diagnosis for this admission?: Yes Plan: Urinalysis positive for UTI. Urine culture result shows Klebsiella Currently on day #4 of 7 of ciprofloxacin. (4) Encephalopathy acute Is this a current diagnosis for this admission?: Yes Plan: Resolved. - Time Time Spent with patient: 15-24 minutes Medications reviewed and adjusted accordingly: Yes Anticipated discharge: Other - Inpatient psychiatric facility Within: when bed available
[2019-03-15] MEDS: GUAIFENESIN 600 MG TABLET.SA PO SCH (22:18)
[2019-03-15] MEDS: SIMVASTATIN 40 MG TABLET PO SCH (22:18)
--- NOTE | 2019-03-16 09:36 | RADIOLOGY REPORT (SQ) ---
EXAM DESCRIPTION: CHEST SINGLE VIEW COMPLETED DATE/TIME: 03/16/2019 9:03 am REASON FOR STUDY: hypoxia, cough COMPARISON: AP view of the chest from 03/11/2019. EXAM PARAMETERS: NUMBER OF VIEWS: One view. TECHNIQUE: An AP view of the chest was obtained. RADIATION DOSE: NA LIMITATIONS: None. FINDINGS: LUNGS AND PLEURA: No consolidation, pleural effusion or pneumothorax. MEDIASTINUM AND HILAR STRUCTURES: No mediastinal or hilar contour abnormality. HEART AND VASCULAR STRUCTURES: The cardiac silhouette and pulmonary vasculature are within normal haddad its. BONES: No acute findings. HARDWARE: None in the chest. OTHER: No other finding. IMPRESSION: No acute cardiopulmonary process. TECHNICAL DOCUMENTATION: JOB ID: [id number] [employer]- All Rights Reserved Reading location - IP/workstation name: [email or web address]
[2019-03-16] MEDS: CLOPIDOGREL BISULFATE 75 MG TABLET PO SCH (10:12)
[2019-03-16] MEDS: GUAIFENESIN 600 MG TABLET.SA PO SCH ×2 (10:12→21:11)
[2019-03-16] MEDS: THIAMINE HCL 100 MG TABLET PO SCH (10:12)
[2019-03-16] MEDS: FOLIC ACID 1 MG TABLET PO SCH (10:12)
[2019-03-16] MEDS: CIPROFLOXACIN HCL 500 MG TABLET PO SCH ×2 (10:13→21:10)
[2019-03-16] MEDS: METOPROLOL SUCCINATE 50 MG TAB.SR.24H PO SCH (10:13)
[2019-03-16] MEDS: ENOXAPARIN SODIUM INJ 40 MG/0.4 ML DISP.SYRIN SUBCUT SCH (10:13)
[2019-03-16] MEDS: MULTIVITAMINS W-IRON TABLET, CHEWABLE PO SCH (10:13)
--- NOTE | 2019-03-16 15:03 | PDOC PROGRESS REPORT ---
Subjective Progress Note for:: 03/16/19 Subjective:: The patient is a 78-year-old female with a past medical history significant for depression, anxiety, hypertension, possible CAD, and alcohol dependence with continuous use who was admitted to the financial advocate service on 03/12/2023 acute encephalopathy secondary to presumed overdose on Ativan and primidone. Patient later admitted to intentional overdose. The patient remained stable on room air and received supportive care. She is downgraded to the medical floor and transferred to the hospitalist service on 03/15/19. Patient was briefly seen on morning rounds. She is found sitting up in bed, comfortably, on room air. She is alert and oriented x4, speaks in full sentences, social and conversationally appropriate. She is asking to be discharged home; reminded patient to discuss disposition plan with mental health but at this time we were seeking inpatient placement. She does report a nonproductive cough, though this is improved. She denies fever, chest pain, palpitations, dyspnea, orthopnea, abdominal pain, nausea, vomiting and diarrhea. She reports good appetite. She has no other questions or concerns at this time. No concerns per nursing. Patient is medically stable for discharge. Reason For Visit: ENCEPHSLOPATHY,DRUG OVERDOSE Physical Exam Vital Signs: Temp Pulse Resp BP Pulse Ox 97.3 F 84 18 166/83 H 93 03/16/19 11:36 03/16/19 11:36 03/16/19 11:36 03/16/19 11:36 03/16/19 11:36 Intake & Output 03/15/19 03/16/19 03/17/19 06:59 06:59 06:59 Intake Total 400 1322 720 Balance 400 1322 720 Weight 67.9 kg 53.6 kg General appearance: PRESENT: no acute distress, cooperative, disheveled, thin, well-developed, well-nourished Head exam: PRESENT: atraumatic, normocephalic Eye exam: PRESENT: conjunctiva pink, EOMI, PERRLA. ABSENT: scleral icterus Ear exam: PRESENT: normal external ear exam Mouth exam: PRESENT: moist, tongue midline Respiratory exam: PRESENT: clear to auscultation carol, symmetrical, unlabored. ABSENT: rales, rhonchi, wheezes Cardiovascular exam: PRESENT: RRR, +S1, +S2. ABSENT: diastolic murmur, rubs, systolic murmur Pulses: PRESENT: normal dorsalis pedis pul Vascular exam: PRESENT: normal capillary refill GI/Abdominal exam: PRESENT: normal bowel sounds, soft. ABSENT: distended, guarding, mass, organolmegaly, rebound, tenderness Rectal exam: PRESENT: deferred Extremities exam: PRESENT: full ROM. ABSENT: calf tenderness, clubbing, pedal edema Musculoskeletal exam: PRESENT: ambulatory Neurological exam: PRESENT: alert, awake, oriented to person, oriented to place, oriented to time, oriented to situation, CN II-XII grossly intact. ABSENT: motor sensory deficit Psychiatric exam: PRESENT: appropriate affect, normal mood. ABSENT: homicidal ideation, suicidal ideation Skin exam: PRESENT: dry, intact, warm. ABSENT: cyanosis, rash Results Laboratory Results: 03/14/19 03:51 03/14/19 03:51 03/11/19 21:50 Troponin I < 0.012 Impressions: Head CT 03/11/19 22:53 IMPRESSION: 1. No acute intracranial hemorrhage is seen. 2. Mild cerebral atrophy and periventricular white matter changes are seen. Chest X-Ray 03/16/19 00:00 IMPRESSION: No acute cardiopulmonary process. Assessment and Plan - Diagnosis (1) Overdose Qualifiers: Encounter type: initial encounter Injury intent: intentional self-harm Qualified Code(s): T50.902A - Poisoning by unspecified drugs, medicaments and biological substances, intentional self-harm, initial encounter Is this a current diagnosis for this admission?: Yes Plan: Patient with intentional overdose of Ativan and primidone. Plan medically cleared for discharge to inpatient psychiatric facility. She remains under IVC status with suicide precautions. Mental health is consulted; plan and disposition per their recommendations. (2) Alcohol abuse Is this a current diagnosis for this admission?: Yes Plan: Patient is past window for alcohol withdrawal. She continues on daily thiamine, folic acid, and multivitamin supplements. Discharge planning and mental health services consulted. (3) Urinary tract infection Qualifiers: Urinary tract infection type: acute cystitis Is this a current diagnosis for this admission?: Yes Plan: Urinalysis positive for UTI. Urine culture result shows Klebsiella Currently on day #5 of 7 of ciprofloxacin. (4) Encephalopathy acute Is this a current diagnosis for this admission?: Yes Plan: Resolved. - Time Time Spent with patient: 15-24 minutes Medications reviewed and adjusted accordingly: Yes Anticipated discharge: Other - onpatient psychiatric facility Within: when bed available
[2019-03-16] MEDS: SIMVASTATIN 40 MG TABLET PO SCH (21:11)
[2019-03-17] MEDS: ENOXAPARIN SODIUM INJ 40 MG/0.4 ML DISP.SYRIN SUBCUT SCH (09:51)
[2019-03-17] MEDS: CLOPIDOGREL BISULFATE 75 MG TABLET PO SCH (09:51)
[2019-03-17] MEDS: THIAMINE HCL 100 MG TABLET PO SCH (09:51)
[2019-03-17] MEDS: FOLIC ACID 1 MG TABLET PO SCH (09:51)
[2019-03-17] MEDS: MULTIVITAMINS W-IRON TABLET, CHEWABLE PO SCH (09:51)
[2019-03-17] MEDS: GUAIFENESIN 600 MG TABLET.SA PO SCH (09:51)
[2019-03-17] MEDS: CIPROFLOXACIN HCL 500 MG TABLET PO SCH (09:51)
[2019-03-17] MEDS: METOPROLOL SUCCINATE 50 MG TAB.SR.24H PO SCH (09:51)
--- NOTE | 2019-03-17 11:43 | PSYCHOLOGICAL NOTE ---
Psych Note - Psych Note Date seen by psych provider: 03/16/19 Time seen by psych provider: 09:55 - Re evaluation Psych Note: Presenting Problem: Patient is a medical admit after presenting to ED 03/11/2019 for Intentional OD of Primidine and Lorazepam. She was subsequently put on IVC. Today she was more alert and oriented to self, person, place, time and situation. She was able to engage in evaluation. She stated she was "feeling good and really wanting to go home." She identified she knew why she was in the hospital and stated "I wish I would have succeeded." She went on to deny current suicidal ideation. She became tearful when talking about her children not t alking to her since last year when she changed her ill. She reported her PCM Dr. Caraballo in [facility] [place] had her on Effexor, she talked to him about side effects which he seemed to laugh at her about, then changed her to Prozac which did not help and finally put her on Primidone (for shakiness, did help) and Lorazepam. She stated the Lorazepam was up tp 4 times a day as needed, she would take 1 in the morning, "this is what really got me started and it didn't make me feel good." She stated "I was so out of it I couldn't help myself, I said screw it and took all the medications in the bottles, said I just need to get it over with." She identified "the tremors are triggers and bother her often, she had a CAT scan done and results were everything was okay, it is benign not palsy." She stated "I feel like a non functioning member of society, like I'm not productive and I can't be self sufficient when I want to be." She stated she owns her home and currently her adult aged granddaughter with 9 year old great grand son are staying with her. Attending Nurse stated patient had 1L of O2 this morning, was at 94%, they are weening off, and daytime when patient is active O2 is fine but at night during sleep it tends to be an issue. Diagnosis: Overdose Suicidal Ideation Endorsed feelings of hopelessness, helplessness, worthlessness Impression/Plan: Recommendation to continue FULL IVC and seek inpatient hospitalization. Waiting for O2 to be successfully weened off. Today patient endorsed feeling like a non functioning member of society/not being productive/wanting to be self sufficient (endorsed feelings of hopelessness/helplessness/worthlessness), the tremors bother her a lot/are triggers, noted her children being estranged since she changed her Will last year, and stated she wished she would have succeeded with killing herself from the overdose. She did deny current SI. She identified her granddaughter and 9 year old great grand son have been staying with her and gave verbal consent to keep granddaughter aware of plan of care. Consulted with Dr. Guzman regarding the management and care of patient. Attending Hospitalist aware of recommendations and in agreement.
--- NOTE | 2019-03-17 11:47 | PSYCHOLOGICAL NOTE ---
Psych Note - Psych Note Date seen by psych provider: 03/17/19 Time seen by psych provider: 15:15 - Re evaluation Psych Note: Presenting Problem: Patient is a medical admit after presenting to ED 03/11/2019 for Intentional OD of Primidine and Lorazepam. She was subsequently put on IVC. Have not been able to do placement due to patient being on O2. Today Attending Hospitalist said patient was no longer on O2 and at 1515 said it had been over 24 hours without and no use of CPAP. Will start placement efforts again. Had not provided medication recommendations due to overdose/initial lethargy so offered recommendations for scheduled medications today. Head CT from 03/11/2019 has neurodegenerative language (periventricular and atrophy) so medications take those potential processes into account. Patient was on the phone with her neighbor Ludy when this Clinician informed her of acceptance to [facility]. She handed the phone over to this clinician and asked to explain to neighbor wheat is going on. She again gave verbal consent to talk with Ludy about placement. Ludy explained she was the one who found patient and called 10-15-, that she has been babysitting patient's great grand son while granddaughter is on [place] this week, will be helping to care for patient (specifically be in control of patient's medications and administration once she gets back home, to the extent she will keep medications at her home) and is looking over patient's house/paying bills for her. She was provided name of accepting facility and address. She identified she would come to hospital now for a last visit with patient before being transferred. Diagnosis: Overdose Suicidal Ideation Endorsed feelings of hopelessness, helplessness, worthlessness Medication recommendations made by the psychiatric medication provider, Dr. Jayde MD., includes: Add Depakote ER 250MG PO twice a day for mood stabilization Add Gabapentin 600MG PO twice day to aid in neurocognitive depression and to supplement Depakote ER for mood stabilization Impression/Plan: Placement efforts were re engaged today since been off O2 for 24 plus hours. Patient accepted to [facility]. Will move forward with that placement since yesterday patient endorsed feelings of hop elessness/helplessness/worthlessness, wishing she would have been successful in suicide attempt and just starting scheduled medication this morning. Patient gave verbal consent and handed phone over to this Clinician to keep her neighbor/good support system aware of plan. Consulted with Dr. Guzman regarding the management and care of patient. Attending Hospitalist aware of acceptance and in agreement with moving forward.
[2019-03-17 13:24] VITALS: BP 159/67
--- NOTE | 2019-03-17 14:52 | PDOC PROGRESS REPORT ---
Subjective Progress Note for:: 03/17/19 Subjective:: The patient is a 78-year-old female with a past medical history significant for depression, anxiety, hypertension, possible CAD, and alcohol dependence with continuous use who was [facility] the [facility] on 03/12/2023 acute encephalopathy secondary to presumed overdose on Ativan and primidone. Patient later admitted to intentional overdose. The patient remained stable on room air and received supportive care. She is downgraded to the medical floor and transferred to the hospitalist service on 03/15/19. Patient was briefly seen on morning rounds. She is found sitting up in bed, comfortably, on room air. She is alert and oriented x4, speaks in full sentences, social and conversationally appropriate. She again asks to be discharged home; however, once reminded that mental health services were seeking inpatient psychiatric placement, the patient replies that she would like to stay as close to [facility] as possible but understands the need for additional inpatient care. Overall, she reports she is feeling much better today. She denies fever, chest pain, palpitations, dyspnea, orthopnea, cough, abdominal pain, nausea, vomiting and diarrhea. She reports good appetite. She has no other questions or concerns at this time. No concerns per nursing. Patient is medically stable for discharge. Reason For Visit: ENCEPHSLOPATHY,DRUG OVERDOSE Physical Exam Vital Signs: Temp Pulse Resp BP Pulse Ox 98.9 F 73 19 159/67 H 94 03/17/19 10:00 03/17/19 10:00 03/17/19 10:00 03/17/19 10:00 03/17/19 10:00 Intake & Output 03/16/19 03/17/19 03/18/19 06:59 06:59 06:59 Intake Total 1322 1942 Balance 1322 1942 Weight 53.6 kg 53 kg General appearance: PRESENT: no acute distress, cooperative, thin, well- developed, well-nourished Head exam: PRESENT: atraumatic, normocephalic Eye exam: PRESENT: conjunctiva pink, EOMI, PERRLA. ABSENT: scleral icterus Ear exam: PRESENT: normal external ear exam Mouth exam: PRESENT: moist, tongue midline Respiratory exam: PRESENT: clear to auscultation carol, symmetrical, unlabored. ABSENT: rales, rhonchi, wheezes Cardiovascular exam: PRESENT: RRR, +S1, +S2. ABSENT: diastolic murmur, rubs, systolic murmur Vascular exam: PRESENT: normal capillary refill Extremities exam: PRESENT: full ROM. ABSENT: calf tenderness, clubbing, pedal edema Musculoskeletal exam: PRESENT: ambulatory Neurological exam: PRESENT: alert, awake, oriented to person, oriented to place, oriented to time, oriented to situation, CN II-XII grossly intact. ABSENT: motor sensory deficit Psychiatric exam: PRESENT: appropriate affect, normal mood. ABSENT: homicidal ideation, suicidal ideation Skin exam: PRESENT: dry, intact, warm. ABSENT: cyanosis, rash Results Laboratory Results: 03/14/19 03:51 03/14/19 03:51 03/11/19 21:50 Troponin I < 0.012 Impressions: Head CT 03/11/19 22:53 IMPRESSION: 1. No acute intracranial hemorrhage is seen. 2. Mild cerebral atrophy and periventricular white matter changes are seen. Chest X-Ray 03/16/19 00:00 IMPRESSION: No acute cardiopulmonary process. Assessment and Plan - Diagnosis (1) Overdose Qualifiers: Encounter type: initial encounter Injury intent: intentional self-harm Qualified Code(s): T50.902A - Poisoning by unspecified drugs, medicaments and biological substances, intentional self-harm, initial encounter Is this a current diagnosis for this admission?: Yes Plan: Patient with intentional overdose of Ativan and primidone. Plan medically cleared for discharge to inpatient psychiatric facility. She remains under IVC status with suicide precautions. Mental health is consulted; plan and disposition per their recommendations. (2) Alcohol abuse Is this a current diagnosis for this admission?: Yes Plan: Patient is past window for alcohol withdrawal. She continues on daily thiamine, folic acid, and multivitamin supplements. Discharge planning and mental health services consulted. (3) Urinary tract infection Qualifiers: Urinary tract infection type: acute cystitis Is this a current diagnosis for this admission?: Yes Plan: Urinalysis positive for UTI. Urine culture result shows Klebsiella Currently on day #6 of 7 of ciprofloxacin. (4) Encephalopathy acute Is this a current diagnosis for this admission?: Yes Plan: Resolved. - Time Time Spent with patient: Less than 15 minutes Medications reviewed and adjusted accordingly: Yes Anticipated discharge: Other - Inpatient psychiatric facility Within: when bed available
[2019-03-17] MEDS ORDERED: DIVALPROEX SODIUM 250 MG TAB.SR.24H PO SCH (18:00)
--- NOTE | 2019-03-17 18:50 | PDOC TRANSFER SUMMARY ---
General Admission Date/PCP: 03/12/19 11:12 Transfer Date: 03/17/19 - [place] Accepting Physician: Dr. Lyn Resuscitation Status: Full Code - Transfer Diagnosis (1) Overdose Is this a current diagnosis for this admission?: Yes (2) Alcohol abuse Is this a current diagnosis for this admission?: Yes (3) Urinary tract infection Is this a current diagnosis for this admission?: Yes (4) Encephalopathy acute Is this a current diagnosis for this admission?: Yes - Transfer Medications Home Medications: Clopidogrel Bisulfate [Plavix 75 mg Tablet] 75 mg PO DAILY 03/12/19 Fluoxetine HCl [Prozac 20 mg Capsule] 20 mg PO DAILY 03/12/19 Lorazepam [Ativan 0.5 mg Tablet] 0.5 mg PO Q6HP PRN 03/12/19 Metoprolol Succinate [Toprol Xl 50 mg Tab.sr] 50 mg PO DAILY 03/12/19 Primidone [Mysoline 50 mg Tablet] 150 mg PO QHS 03/12/19 Simvastatin [Zocor 40 mg Tablet] 40 mg PO QHS 03/12/19 Venlafaxine HCl ER [Effexor Xr 75 mg Cap.sr] 75 mg PO DAILY 03/12/19 Transfer Medications: Current Medications Acetaminophen (Tylenol 325 Mg Tablet) 650 mg PO Q4HP PRN PRN Reason: FOR PAIN OR TEMP Stop: 04/11/19 13:44 Last Admin: 03/16/19 21:11 Dose: 650 mg Documented by: Ciprofloxacin (Cipro 500 Mg Tablet) 500 mg PO Q12 [facility] Stop: 03/22/19 09:59 Last Admin: 03/17/19 09:51 Dose: 500 mg Documented by: Clopidogrel Bisulfate (Plavix 75 Mg Tablet) 75 mg PO DAILY [facility] Stop: 04/11/19 09:59 Last Admin: 03/17/19 09:51 Dose: 75 mg Documented by: Divalproex Sodium (Depakote Er 250 Mg Tablet) 250 mg PO Q12A [facility] Stop: 04/16/19 17:59 Last Admin: 03/17/19 18:42 Dose: 250 mg Documented by: Enoxaparin Sodium (Lovenox Inj 40 Mg/0.4 Ml Disp.Syrin) 40 mg SUBCUT DAILY [facility] Stop: 04/12/19 09:59 Last Admin: 03/17/19 09:51 Dose: 40 mg Documented by: Folic Acid (Folvite 1 Mg Tablet) 1 mg PO DAILY [facility] Stop: 04/13/19 09:59 Last Admin: 03/17/19 09:51 Dose: 1 mg Documented by: Guaifenesin (Mucinex Sr 600 Mg Tablet.Sa) 600 mg PO Q12 [facility] Stop: 04/14/19 21:59 Last Admin: 03/17/19 09:51 Dose: 600 mg Documented by: Kenjiaifenesin (Robitussin Syrup 200 Mg/10 Ml Ud Cup) 200 mg PO Q4HP PRN PRN Reason: COUGH Stop: 04/14/19 18:33 Metoprolol Succinate (Toprol Xl 50 Mg Tab.Sr) 50 mg PO DAILY [facility] Stop: 04/11/19 09:59 Last Admin: 03/17/19 09:51 Dose: 50 mg Documented by: Multivitamins/Iron (Flintstones Chewable Multivit W/Fe Tab) 1 tab PO DAILY [facility] Stop: 04/13/19 09:59 Last Admin: 03/17/19 09:51 Dose: 1 tab Documented by: Simvastatin (Zocor 40 Mg Tablet) 40 mg PO QHS [facility] Stop: 04/11/19 21:59 Last Admin: 03/16/19 21:11 Dose: 40 mg Documented by: Thiamine HCl (Thiamine 100 Mg Tablet) 100 mg PO DAILY [facility] Stop: 04/13/19 09:59 Last Admin: 03/17/19 09:51 Dose: 100 mg Documented by: - Allergies Allergies/Adverse Reactions: No Known Allergies Allergy (Verified 03/11/19 22:33) - Diet/Activity Discharge Diet: Regular Discharge Activity: Activity As Tolerated Hospital Course Hospital Course: Per H&P by Dr. Zepeda: Pt is a 78 yo woman with a h/o alcohol abuse, CAD, HTN, hyperlipidemia, who was brought to the ED after being found unresponsive by a neighbor. Per report, there were empty bottles of ativan and primidone next to the pt. Pt has been lethargic but had periods of agiation in the ED and has required 4 point soft restraints. She was diagnosed with a UTI in the ED and has been started on ATBX. Upon my assessement of the pt in the ICU, she is lethargic, in restraints, but moves all extremities. Course: (1) Overdose Patient with intentional overdose of Ativan and primidone. Plan medically cleared for discharge to inpatient psychiatric facility. She remains under IVC status with suicide precautions. Mental health is consulted; plan and disposition per their recommendations. (2) Alcohol abuse Patient is past window for alcohol withdrawal. She continues on daily thiamine, folic acid, and multivitamin supplements. Discharge planning and mental health services consulted. (3) Urinary tract infection Urinalysis positive for UTI. Urine culture result shows Klebsiella Completed full course of Cipro. (4) Encephalopathy acute Resolved. Physical Exam Vital Signs: Temp Pulse Resp BP Pulse Ox 98.9 F 73 19 159/67 H 94 03/17/19 10:00 03/17/19 10:00 03/17/19 10:00 03/17/19 10:00 03/17/19 10:00 Intake & Output 03/16/19 03/17/19 03/18/19 06:59 06:59 06:59 Intake Total 1322 1942 Balance 1322 1942 Weight 53.6 kg 53 kg General appearance: PRESENT: no acute distress, cooperative, thin, well- developed, well-nourished Head exam: PRESENT: atraumatic, normocephalic Eye exam: PRESENT: conjunctiva pink, EOMI, PERRLA. ABSENT: scleral icterus Ear exam: PRESENT: normal external ear exam Mouth exam: PRESENT: moist, tongue midline Respiratory exam: PRESENT: clear to auscultation carol, symmetrical, unlabored. ABSENT: rales, rhonchi, wheezes Cardiovascular exam: PRESENT: RRR. ABSENT: diastolic murmur, rubs, systolic murmur Vascular exam: PRESENT: normal capillary refill Extremities exam: PRESENT: full ROM. ABSENT: calf tenderness, clubbing, pedal edema Musculoskeletal exam: PRESENT: ambulatory Neurological exam: PRESENT: alert, awake, oriented to person, oriented to place, oriented to time, oriented to situation, CN II-XII grossly intact. ABSENT: motor sensory deficit Psychiatric exam: PRESENT: appropriate affect, normal mood. ABSENT: homicidal ideation, suicidal ideation Skin exam: PRESENT: dry, intact, warm. ABSENT: cyanosis, rash Results Laboratory Results: 03/14/19 03:51 03/14/19 03:51 03/11/19 21:50 Troponin I < 0.012 Impressions: Head CT 03/11/19 22:53 IMPRESSION: 1. No acute intracranial hemorrhage is seen. 2. Mild cerebral atrophy and periventricular white matter changes are seen. Chest X-Ray 03/16/19 00:00 IMPRESSION: No acute cardiopulmonary process. Plan Discharge Plan: Discharge to [facility] into the care of Dr. Lyn. Time Spent: Greater than 30 Minutes
== END 2019-03-17 20:55 | DRG 917 ==
LOC: ER 21:53 → EH 03-12 11:12 → ICU 03-12 13:39 → 4S 03-15 10:10
PROVIDERS: ADMIT Internal Medicine; ATTEND Internal Medicine
DX: T42.4X2A Poisoning by benzodiazepines, intentional self-harm, initial encounter (principal); G92 Toxic encephalopathy; N30.00 Acute cystitis without hematuria; I25.10 Atherosclerotic heart disease of native coronary artery without angina pectoris; I10 Essential (primary) hypertension; E78.5 Hyperlipidemia, unspecified; T42.6X2A Poisoning by other antiepileptic and sedative-hypnotic drugs, intentional self-harm, initial encounter; B96.1 Klebsiella pneumoniae [K. pneumoniae] as the cause of diseases classified elsewhere; F10.20 Alcohol dependence, uncomplicated; Z79.02 Long term (current) use of antithrombotics/antiplatelets; Z79.899 Other long term (current) drug therapy; Z78.1 Physical restraint status
CPT/HCPCS: 36415; 51701; 70450; 71045; 80048; 80053; 80307; 81001; 82140; 82962; 83735; 84443; 84484; 85025; 85027; 87086; 87088; 87186; 93005; 93010; 94667; 94799; 96365; 99285; J0696; J0744; J1650; J2060; J3411; J3490; J7050; S0028